=== PATIENT | female | born 1970 | race Caucasian/White ===

== ENCOUNTER 2017-01-13 16:10 | Emergency (ER) | payer OTHER ==
--- NOTE | 2017-01-13 16:51 | ED CLINICAL REPORT ---
Clinical Report - Physicians/Mid Levels [facility] [address] [place] [address] 01/13/2017 16:11 Patient: PARDEEP VARGAS Time Seen; upon arrival, initial patient contact, initial documentation, patient care assumed. Arrived- By private vehicle. Historian- patient. HISTORY OF PRESENT ILLNESS Chief Complaint: DYSURIA and VAGINAL DISCHARGE. This started about 1 months ago and still present but is improving. The symptoms are described as moderate. Modifying factors. Not worsened by anything. Not relieved by anything. The patient has had abnormal bleeding says that on the of this month, she started having a bloody type dc and a vaginal discharge. No abdominal pain, pelvic pain, vaginal pain, low back pain or flank pain. No irregular periods, pain with urination, urinary frequency, urgency of urination or hematuria. Sexually active. (c/o not being able to tell when she needs to pee, like the sensation that tells you when it is time to go, is gone, started about a month ago or longer, there is nothing new today). Denies current . Similar symptoms previously: None. Recent medical care: The patient was seen recently in a clinic. ( [facility] with [facility] infection, started abx last night, and feels better today, full exam done with pelvic exam and wet mount and cx's, awaiting results of those). REVIEW OF SYSTEMS No nausea, vomiting, diarrhea, fever or difficulty breathing. No chest pain. She has had lower back pain (back pain for years, bladder and sensory stuff started about a month ago). It has been associated with sensory loss and symptoms related to bladder dysfunction. No motor weakness or symptom related to bowel dysfunction. back pain relieved when she raises up on her hands when sitting. All systems otherwise negative, except as recorded above. PAST HISTORY See nurses notes. ( PROBLEMS: Allergic Reaction. Hypertension. Aneurysm. Chronic Headache. GI Bleeding. Reflux. Hiatal Hernia. Chest Pain. Migraine Headache. --16:27 Azam Quevedo, RLeilaniN. ADDITIONAL SURGERIES: Hernia Repair. --16:27 Azam Quevedo R.N.). SOCIAL HISTORY Former smoker. No alcohol use or drug use. No recent travel. Is a local resident. FAMILY HISTORY Negative. ADDITIONAL NOTES The nursing notes have been reviewed with agreement regarding the chief complaint, HPI, ROS, PMH and patient medications and allergies. PHYSICAL EXAM Vital Signs: 01/13/2017 16:21 BP: 136/94. HR: 93. RR: 18. O2 saturation: 96%. Temp: 98.1 F. Have been reviewed as normal and appear to be correct. Appearance: Alert. Oriented X3. No acute distress. HEENT: Normal external inspection. ENT: Pharynx normal. Neck: Neck supple. CVS: Heart sounds normal. Respiratory: No respiratory distress. Breath sounds normal. Chest nontender. Abdomen: Soft and nontender. Back: Normal external inspection. Skin: Skin warm and dry. Normal skin color. No rash. Normal skin turgor. Extremities: Extremities nontender. No lower extremity edema. Neuro: Oriented X 3. Mood/affect normal. No motor deficit. No sensory deficit. PROGRESS AND PROCEDURES Course of Care: pt had records with her from yesterday's clinic visit which were reviewed. Patient counseled in person regarding the patient's stable condition and diagnosis. Differential Diagnosis: I considered disk protrusion, facet syndrome, sacroiliac joint strain, sciatica, osteoarthritis, lumbar spondylosis, spinal stenosis, ankylosing spondylitis and sacroiliac joint inflammation as a possible cause of back pain in this patient. This is a partial list of diagnoses considered. Other possible considerations: uti, pyelo, kidney failure/insufficiency, nerve impingment syndrome, std, bv, yeast, menopause. Above considerations are based on history and physical exam. Differential diagnosis was discussed with patient. Disposition: Discharged home in good and unchanged condition (16:51). Condition: good and stable. CLINICAL IMPRESSION Acute urinary tract infection. No cystitis, pyelonephritis or hematuria. Not associated with indwelling catheter or obstruction. INSTRUCTIONS Drink plenty of fluids for the next 24 hours until better. (continue with current prescriptions as previously directed and discussed). Warnings: GENERAL WARNINGS: Return or contact your physician immediately if your condition worsens or changes unexpectedly, if not improving as expected, or if other problems arise. Specifically return if problem worsens. Understanding of the discharge instructions verbalized by patient. Follow-up with: Montana Mina MD, Neurology, , [address], , [place], [id number] Follow up in about one week as needed. Call for an appointment. Summary of care provided to patient. (Electronically signed by Albina Kuhn A.R.N.P. 01/13/2017 17:00)
--- NOTE | 2017-01-13 16:51 | ED CLINICAL REPORT ---
Clinical Report - Physicians/Mid Levels [facility] [address] [place] [address] 01/13/2017 16:11 Patient: PARDEEP VARGAS Time Seen; upon arrival, initial patient contact, initial documentation, patient care assumed. Arrived- By private vehicle. Historian- patient. HISTORY OF PRESENT ILLNESS Chief Complaint: DYSURIA and VAGINAL DISCHARGE. This started about 1 months ago and still present but is improving. The symptoms are described as moderate. Modifying factors. Not worsened by anything. Not relieved by anything. The patient has had abnormal bleeding says that on the of this month, she started having a bloody type dc and a vaginal discharge. No abdominal pain, pelvic pain, vaginal pain, low back pain or flank pain. No irregular periods, pain with urination, urinary frequency, urgency of urination or hematuria. Sexually active. (c/o not being able to tell when she needs to pee, like the sensation that tells you when it is time to go, is gone, started about a month ago or longer, there is nothing new today). Denies current . Similar symptoms previously: None. Recent medical care: The patient was seen recently in a clinic. ( [facility], dx with [facility] infection, started abx last night, and feels better today, full exam done with pelvic exam and wet mount and cx's, awaiting results of those). REVIEW OF SYSTEMS No nausea, vomiting, diarrhea, fever or difficulty breathing. No chest pain. She has had lower back pain (back pain for years, bladder and sensory stuff started about a month ago). It has been associated with sensory loss and symptoms related to bladder dysfunction. No motor weakness or symptom related to bowel dysfunction. back pain relieved when she raises up on her hands when sitting. All systems otherwise negative, except as recorded above. PAST HISTORY See nurses notes. ( PROBLEMS: Allergic Reaction. Hypertension. Aneurysm. Chronic Headache. GI Bleeding. Reflux. Hiatal Hernia. Chest Pain. Migraine Headache. --16:27 Azam Quevedo, RLeilaniN. ADDITIONAL SURGERIES: Hernia Repair. --16:27 Azam Quevedo R.N.). SOCIAL HISTORY Former smoker. No alcohol use or drug use. No recent travel. Is a local resident. FAMILY HISTORY Negative. ADDITIONAL NOTES The nursing notes have been reviewed with agreement regarding the chief complaint, HPI, ROS, PMH and patient medications and allergies. PHYSICAL EXAM Vital Signs: 01/13/2017 16:21 BP: 136/94. HR: 93. RR: 18. O2 saturation: 96%. Temp: 98.1 F. Have been reviewed as normal and appear to be correct. Appearance: Alert. Oriented X3. No acute distress. HEENT: Normal external inspection. ENT: Pharynx normal. Neck: Neck supple. CVS: Heart sounds normal. Respiratory: No respiratory distress. Breath sounds normal. Chest nontender. Abdomen: Soft and nontender. Back: Normal external inspection. Skin: Skin warm and dry. Normal skin color. No rash. Normal skin turgor. Extremities: Extremities nontender. No lower extremity edema. Neuro: Oriented X 3. Mood/affect normal. No motor deficit. No sensory deficit. PROGRESS AND PROCEDURES Course of Care: pt had records with her from yesterday's clinic visit which were reviewed. Patient counseled in person regarding the patient's stable condition and diagnosis. Differential Diagnosis: I considered disk protrusion, facet syndrome, sacroiliac joint strain, sciatica, osteoarthritis, lumbar spondylosis, spinal stenosis, ankylosing spondylitis and sacroiliac joint inflammation as a possible cause of back pain in this patient. This is a partial list of diagnoses considered. Other possible considerations: uti, pyelo, kidney failure/insufficiency, nerve impingment syndrome, std, bv, yeast, menopause. Above considerations are based on history and physical exam. Differential diagnosis was discussed with patient. Disposition: Discharged home in good and unchanged condition (16:51). Condition: good and stable. CLINICAL IMPRESSION Acute urinary tract infection. No cystitis, pyelonephritis or hematuria. Not associated with indwelling catheter or obstruction. INSTRUCTIONS Drink plenty of fluids for the next 24 hours until better. (continue with current prescriptions as previously directed and discussed). Warnings: GENERAL WARNINGS: Return or contact your physician immediately if your condition worsens or changes unexpectedly, if not improving as expected, or if other problems arise. Specifically return if problem worsens. Understanding of the discharge instructions verbalized by patient. Follow-up with: Montana Mina MD, Neurology, , [address], , [place], [phone] Follow up in about one week as needed. Call for an appointment. Summary of care provided to patient. (Electronically signed by Albina Kuhn A.R.N.P. 01/13/2017 17:00)
--- NOTE | 2017-01-13 16:51 | ED NURSING NOTES ---
Clinical Report - Nurses [facility] [address] [place] [address] 01/13/2017 16:11 [id number] Triage time 16:Jan 13 2017. Acuity: LEVEL 3. JINA COMA SCORE: Jina Coma Scale: 15- eyes open spontaneously (4); best verbal response- oriented x 4 (5); best motor response- obeys commands (6). --16:36 Azam Quevedo R.N. 16:21 01/13/17. BP: 136/94. HR: 93. RR: 18. O2 saturation: 96%. Temp: 98.1 F. Pain level now 5/10. --16:36 Azam Quevedo R.N. Chief Complaint: (vaginal numbness). --17:19 Azam Quevedo R.N. Weight: 65.7 kg measured. Height/Length: 64 inches Per Patient. BMI: 24.9. --16:30 Azam Quevedo R.N. Medications Hydrochlorothiazide Oral. Xanax Oral 1 mg, daily. Zolpidem Tartrate Oral 10 mg, at bedtime. --16:25 Azam Quevedo R.N. Bactrim DS Oral. --16:25 Azam Quevedo R.N. Hydrocodone-Acetaminophen Oral. --16:25 Azam Quevedo R.N. Allergies Antidepressants. --16:26 Azam Quevedo R.N. Ondansetron. --16:26 Azam Quevedo R.N. Aspirin. --16:26 Azam Quevedo R.N. History Arrived by private vehicle. Historian: patient. Primary physician (Rachel Rivas NP). ( Was seen in the urgent clinic yesterday. Was diagnosed with Kidney infection and started antibiotics last night at 1700. Was told by MD to come in today because she didn't feel her pelvic exam and doesn't feel when she has to pee. Not incontinent.). She has had spotting, abnormal bleeding and flank pain. No abdominal pain, hematuria or fever. 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 PAST MEDICAL HX: Immunizations: up-to-date. Last normal menstrual period- Aug. SOCIAL HX: Former smoker, end date 1997. No alcohol use or drug use. SELF HARM ASSESSMENT: A self harm assessment was performed. The patient answered "no" to the question "Have you recently felt down, depressed, or hopeless?" and "Do you have thoughts of harming or killing yourself?". FALL RISK ASSESSMENT: Fall risk assessment completed. No fall risk identified. NUTRITIONAL RISK ASSESSMENT: The nutritional risk assessment revealed no deficiencies. FUNCTIONAL ASSESSMENT: Functional assessment: no impairments noted. LEARNING NEEDS ASSESSMENT: The learning needs assessment revealed no barriers. ABUSE ASSESSMENT: Abuse assessment: (yes) The patient was asked "Do you feel safe in your home?". SKIN INTEGRITY ASSESSMENT: Skin integrity risk assessment completed. No skin integrity risk identified. --16:36 Azam Quevedo R.N. PROBLEMS: Allergic Reaction. Hypertension. Aneurysm. Chronic Headache. GI Bleeding. Reflux. Hiatal Hernia. Chest Pain. Migraine Headache. --16:27 Azam Quevedo R.N. ADDITIONAL SURGERIES: Hernia Repair. --16:27 Azam Quevedo R.N. PHYSICAL ASSESSMENT Ambulatory to room. GENERAL / NEURO / PSYCH: Alert. Oriented X 4. Appears anxious. HEENT: Mucous membranes are pink. RESPIRATORY: Respirations not labored. Breath sounds within normal limits. CVS: Normal heart rate and rhythm. Capillary refill less than 2 seconds. GI / : Abdominal distention (slight). Bowel sounds within normal limits. SKIN: Skin is warm and dry. --16:41 Azam Quevedo R.N. DISPOSITION / DISCHARGE Departure time: 1649Jan 13 2017. Condition at departure: improved. No learning barriers present. Discharge instructions provided and reviewed with the patient. Reviewed warnings. Reviewed medication(s). Treatments reviewed. Reviewed referrals. Patient verbalized understanding. Written instructions provided in Urdu. The patient was discharged home. She left the Emergency Department ambulatory and via private vehicle. Patient driving. --17:18 Azam Quevedo R.N. 16:21 01/13/17. BP: 136/94. HR: 93. RR: 18. O2 saturation: 96%. Temp: 98.1 F. Pain level now 03/01. --17:18 Azam Quevedo R.N. Locked/Released at 01/13/2017 17:19 by Azam Quevedo R.N.
--- NOTE | 2017-01-13 16:51 | ED NURSING NOTES ---
Clinical Report - Nurses [facility] [address] [place] [address] 01/13/2017 16:11 [id number] Triage time 16:Jan 13 2017. Acuity: LEVEL 3. JINA COMA SCORE: Jina Coma Scale: 15- eyes open spontaneously (4); best verbal response- oriented x 4 (5); best motor response- obeys commands (6). --16:36 Azam Quevedo R.N. 16:21 01/13/17. BP: 136/94. HR: 93. RR: 18. O2 saturation: 96%. Temp: 98.1 F. Pain level now 5/10. --16:36 Azam Quevedo R.N. Chief Complaint: (vaginal numbness). --17:19 Azam Quevedo R.N. Weight: 65.7 kg measured. Height/Length: 64 inches Per Patient. BMI: 24.9. --16:30 Azam Quevedo R.N. Medications Hydrochlorothiazide Oral. Xanax Oral 1 mg, daily. Zolpidem Tartrate Oral 10 mg, at bedtime. --16:25 Azam Quevedo R.N. Bactrim DS Oral. --16:25 Azam Quevedo R.N. Hydrocodone-Acetaminophen Oral. --16:25 Azam Quevedo R.N. Allergies Antidepressants. --16:26 Azam Quevedo R.N. Ondansetron. --16:26 Azam Quevedo R.N. Aspirin. --16:26 Azam Quevedo R.N. History Arrived by private vehicle. Historian: patient. Primary physician (Rachel Rivas NP). ( Was seen in the urgent clinic yesterday. Was diagnosed with Kidney infection and started antibiotics last night at 1700. Was told by MD to come in today because she didn't feel her pelvic exam and doesn't feel when she has to pee. Not incontinent.). She has had spotting, abnormal bleeding and flank pain. No abdominal pain, hematuria or fever. 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 PAST MEDICAL HX: Immunizations: up-to-date. Last normal menstrual period- Aug. SOCIAL HX: Former smoker, end date 1997. No alcohol use or drug use. SELF HARM ASSESSMENT: A self harm assessment was performed. The patient answered "no" to the question "Have you recently felt down, depressed, or hopeless?" and "Do you have thoughts of harming or killing yourself?". FALL RISK ASSESSMENT: Fall risk assessment completed. No fall risk identified. NUTRITIONAL RISK ASSESSMENT: The nutritional risk assessment revealed no deficiencies. FUNCTIONAL ASSESSMENT: Functional assessment: no impairments noted. LEARNING NEEDS ASSESSMENT: The learning needs assessment revealed no barriers. ABUSE ASSESSMENT: Abuse assessment: (yes) The patient was asked "Do you feel safe in your home?". SKIN INTEGRITY ASSESSMENT: Skin integrity risk assessment completed. No skin integrity risk identified. --16:36 Azam Quevedo R.N. PROBLEMS: Allergic Reaction. Hypertension. Aneurysm. Chronic Headache. GI Bleeding. Reflux. Hiatal Hernia. Chest Pain. Migraine Headache. --16:27 Azam Quevedo R.N. ADDITIONAL SURGERIES: Hernia Repair. --16:27 Azam Quevedo R.N. PHYSICAL ASSESSMENT Ambulatory to room. GENERAL / NEURO / PSYCH: Alert. Oriented X 4. Appears anxious. HEENT: Mucous membranes are pink. RESPIRATORY: Respirations not labored. Breath sounds within normal limits. CVS: Normal heart rate and rhythm. Capillary refill less than 2 seconds. GI / : Abdominal distention (slight). Bowel sounds within normal limits. SKIN: Skin is warm and dry. --16:41 Azam Quevedo R.N. DISPOSITION / DISCHARGE Departure time: 1649Jan 13 2017. Condition at departure: improved. No learning barriers present. Discharge instructions provided and reviewed with the patient. Reviewed warnings. Reviewed medication(s). Treatments reviewed. Reviewed referrals. Patient verbalized understanding. Written instructions provided in Upper Sorbian. The patient was discharged home. She left the Emergency Department ambulatory and via private vehicle. Patient driving. --17:18 Azam Quevedo R.N. 16:21 01/13/17. BP: 136/94. HR: 93. RR: 18. O2 saturation: 96%. Temp: 98.1 F. Pain level now 03/01. --17:18 Azam Quevedo R.N. Locked/Released at 01/13/2017 17:19 by Azam Quevedo R.N.
--- NOTE | 2017-01-13 17:19 | ED MAR SUMMARY ---
..... Medication Administration Record [facility] [address], [place] [id number] Patient: PARDEEP VARGAS Visit ID: [id number] 46y, F Weight: 65.7 kg Height/Length: 64 in BMI: 24.9 ALLERGIES: Aspirin, Ondansetron, Antidepressants
--- NOTE | 2017-01-13 17:19 | ED DISCHARGE INSTRUCTIONS ---
Patient: PARDEEP VARGAS General Instructions [facility] VisitID: [id number] [address] [place] [address] 46y, F Registration Date/Time: 01/13/2017 Acute urinary tract infection. No cystitis, pyelonephritis or hematuria. Not associated with indwelling catheter or obstruction. INSTRUCTIONS Drink plenty of fluids for the next 24 hours until better. (continue with current prescriptions as previously directed and discussed). Warnings: GENERAL WARNINGS: Return or contact your physician immediately if your condition worsens or changes unexpectedly, if not improving as expected, or if other problems arise. Specifically return if problem worsens. Understanding of the discharge instructions verbalized by patient. Follow-up with: Montana Mina MD, Neurology, , [phone], [place], [phone] Follow up in about one week as needed. Call for an appointment. Summary of care provided to patient. ADDITIONAL INFORMATION Bladder Infection,Female (Adult) A bladder infection ("cystitis" or "UTI") usually causes a constant urge to urinate and a burning when passing urine. Urine may be cloudy, smelly or dark. There may be pain in the lower abdomen. A bladder infection occurs when bacteria from the vaginal area enter the bladder opening (urethra). This can occur from sexual intercourse, wearing tight clothing, dehydration and other factors. Home Care: Drink lots of fluids (at least 6-8 glasses a day, unless you must restrict fluids for other medical reasons). This will force the medicine into your urinary system and flush the bacteria out of your body. Avoid sexual intercourse until your symptoms are gone. Avoid caffeine, alcohol and spicy foods. These can irritate the bladder. A bladder infection is treated with antibiotics. You may also be given Pyridium (generic = phenazopyridine) to reduce the burning sensation. This medicine will cause your urine to become a bright orange color. The orange urine may stain clothing. You may wear a pad or panty-liner to protect clothing. Preventing Future Infections: Always wipe from front to back after a bowel movement. Keep the genital area clean and dry. Drink plenty of fluids each day to avoid dehydration. Both sexual partners should wash before intercourse. Urinate right after intercourse to flush out the bladder. Wear cotton underwear and cotton-lined panty hose; avoid tight-fitting pants. If you are on control pills and are having frequent bladder infections, discuss with your doctor. Follow Up: Return to this facility or see your doctor if ALL symptoms are not gone after three days of treatment. Get Prompt Medical Attention if any of the following occur: Fever of 100.4F (38C) or higher, or as directed by your healthcare provider No improvement by the third day of treatment Increasing back or abdominal pain Repeated vomiting; unable to keep medicine down Weakness, dizziness or fainting Vaginal discharge Pain, redness or swelling in the labia (outer vaginal area) You have been given the following additional information: Bladder Infection, Female (Adult) (Electronically signed by Albina Kuhn A.R.NLeilaniPLeilani 01/13/2017 17:00)
--- NOTE | 2017-01-13 17:19 | ED MED RECONCILIATION SUMMARY ---
Patient: PARDEEP VARGAS Medication Reconciliation Report [facility] VisitID: [id number] [address] [place] [address] 46y, F Registration Date/Time: 01/13/2017 Weight: 65.7 kg Height/Length: 64 in. BMI: 24.9 ALLERGIES: Antidepressants, Aspirin, Ondansetron The patient's Home Medications are listed below: THE FOLLOWING MEDICATIONS NEED TO BE RECONCILED: Bactrim DS Oral Hydrochlorothiazide Oral Hydrocodone-Acetaminophen Oral Xanax Oral 1 mg, daily Zolpidem Tartrate Oral 10 mg, at bedtime The source(s) of the original Home Medication information: Not obtained. The following Medications were given to the patient in the Emergency Department: None. The following Medications were prescribed to the patient: None.
--- NOTE | 2017-01-13 17:19 | ED MED RECONCILIATION SUMMARY ---
Patient: PARDEEP VARGAS Medication Reconciliation Report [facility] VisitID: [id number] [address] [place] [address] 46y, F Registration Date/Time: 01/13/2017 Weight: 65.7 kg Height/Length: 64 in. BMI: 24.9 ALLERGIES: Antidepressants, Aspirin, Ondansetron The patient's Home Medications are listed below: THE FOLLOWING MEDICATIONS NEED TO BE RECONCILED: Bactrim DS Oral Hydrochlorothiazide Oral Hydrocodone-Acetaminophen Oral Xanax Oral 1 mg, daily Zolpidem Tartrate Oral 10 mg, at bedtime The source(s) of the original Home Medication information: Not obtained. The following Medications were given to the patient in the Emergency Department: None. The following Medications were prescribed to the patient: None.
--- NOTE | 2017-01-13 17:19 | ED DISCHARGE INSTRUCTIONS ---
Patient: PARDEEP VARGAS General Instructions [facility] VisitID: [id number] [address] [place] [address] 46y, F Registration Date/Time: 01/13/2017 Acute urinary tract infection. No cystitis, pyelonephritis or hematuria. Not associated with indwelling catheter or obstruction. INSTRUCTIONS Drink plenty of fluids for the next 24 hours until better. (continue with current prescriptions as previously directed and discussed). Warnings: GENERAL WARNINGS: Return or contact your physician immediately if your condition worsens or changes unexpectedly, if not improving as expected, or if other problems arise. Specifically return if problem worsens. Understanding of the discharge instructions verbalized by patient. Follow-up with: Montana Mina MD, Neurology, , [id number], [place], [id number] Follow up in about one week as needed. Call for an appointment. Summary of care provided to patient. ADDITIONAL INFORMATION Bladder Infection,Female (Adult) A bladder infection ("cystitis" or "UTI") usually causes a constant urge to urinate and a burning when passing urine. Urine may be cloudy, smelly or dark. There may be pain in the lower abdomen. A bladder infection occurs when bacteria from the vaginal area enter the bladder opening (urethra). This can occur from sexual intercourse, wearing tight clothing, dehydration and other factors. Home Care: Drink lots of fluids (at least 6-8 glasses a day, unless you must restrict fluids for other medical reasons). This will force the medicine into your urinary system and flush the bacteria out of your body. Avoid sexual intercourse until your symptoms are gone. Avoid caffeine, alcohol and spicy foods. These can irritate the bladder. A bladder infection is treated with antibiotics. You may also be given Pyridium (generic = phenazopyridine) to reduce the burning sensation. This medicine will cause your urine to become a bright orange color. The orange urine may stain clothing. You may wear a pad or panty-liner to protect clothing. Preventing Future Infections: Always wipe from front to back after a bowel movement. Keep the genital area clean and dry. Drink plenty of fluids each day to avoid dehydration. Both sexual partners should wash before intercourse. Urinate right after intercourse to flush out the bladder. Wear cotton underwear and cotton-lined panty hose; avoid tight-fitting pants. If you are on control pills and are having frequent bladder infections, discuss with your doctor. Follow Up: Return to this facility or see your doctor if ALL symptoms are not gone after three days of treatment. Get Prompt Medical Attention if any of the following occur: Fever of 100.4F (38C) or higher, or as directed by your healthcare provider No improvement by the third day of treatment Increasing back or abdominal pain Repeated vomiting; unable to keep medicine down Weakness, dizziness or fainting Vaginal discharge Pain, redness or swelling in the labia (outer vaginal area) You have been given the following additional information: Bladder Infection, Female (Adult) (Electronically signed by Albina Kuhn A.[email or web address] 01/13/2017 17:00)
--- NOTE | 2017-01-13 17:19 | ED MAR SUMMARY ---
..... Medication Administration Record [facility] [address] [id number] Patient: PARDEEP VARGAS Visit ID: [id number] 46y, F Weight: 65.7 kg Height/Length: 64 in BMI: 24.9 ALLERGIES: Aspirin, Ondansetron, Antidepressants
== END 2017-01-13 16:50 | disposition home or self-care (01) ==
LOC: ED SRH 16:10
DX: N39.0 Urinary tract infection, site not specified (principal); I10 Essential (primary) hypertension; Z79.899 Other long term (current) drug therapy; Z79.891 Long term (current) use of opiate analgesic; Z79.1 Long term (current) use of non-steroidal anti-inflammatories (NSAID); Z87.891 Personal history of nicotine dependence; Z88.6 Allergy status to analgesic agent; Z88.8 Allergy status to other drugs, medicaments and biological substances